=== PATIENT | male | born 1975 | race Caucasian/White ===

== ENCOUNTER → 2016-12-12 | Outpatient (CLI) | payer OTHER ==
--- NOTE | 2016-12-12 13:56 | DI ---
XR FINGERS MIN 2VW,12/12/2016 9:11 AM: Clinical History: Right index finger pain. Previous Exam: None at this facility. Findings: 2 views of the right index finger are obtained, and demonstrate anatomic alignment without fractures. Joint spaces are normal. There is soft tissue swelling surrounding the digit. Impression: No fracture.
== END ==
LOC: RAD 12:03
PROVIDERS: ATTEND Family Medicine
DX: M79.644 Pain in right finger(s) (principal); M79.89 Other specified soft tissue disorders
CPT/HCPCS: 73140